=== PATIENT | female | born 1970 | race Caucasian/White ===

== ENCOUNTER 2017-06-22 07:52 | Emergency (ER) | payer OTHER ==
[~2017-06-22] VITALS: Ht 154.9 cm; Wt 38.5 kg
[~2017-06-22 07:52] MED LIST: ALPRAZOLAM; FLEXERIL PO; KETOPROFEN PO; LAMICTAL; PERCOCET 10/3251 TAB; PRILOSEC; ROXICODONE15 MG
== END 2017-06-22 10:33 | disposition home or self-care (01) ==
LOC: CED 07:52
DX: F41.9 Anxiety disorder, unspecified (principal); F17.200 Nicotine dependence, unspecified, uncomplicated; Z88.8 Allergy status to other drugs, medicaments and biological substances
CPT/HCPCS: 99283

== ENCOUNTER 2017-07-06 15:16 | Emergency (ER) | payer OTHER ==
[~2017-07-06] VITALS: Ht 152.4 cm; Wt 36.3 kg
== END 2017-07-06 18:00 | disposition home or self-care (01) ==
LOC: CED 15:16
DX: F15.129 Other stimulant abuse with intoxication, unspecified (principal); F11.129 Opioid abuse with intoxication, unspecified; F17.200 Nicotine dependence, unspecified, uncomplicated; Z90.710 Acquired absence of both cervix and uterus; Z88.8 Allergy status to other drugs, medicaments and biological substances
CPT/HCPCS: 82947; 96360; 99284